=== PATIENT | female | born 1995 | race Caucasian/White ===

== ENCOUNTER 2021-02-15 05:25 | Inpatient (IN) | payer OTHER ==
[~2021-02-15] VITALS: Ht 167.6 cm; Wt 126.1 kg
[~2021-02-15 05:25] MED LIST: COLACE 100MG C100 MG PO; IBUPROFEN600 MG PO; LORTAB 5-325 M1 EACH PO
[2021-02-15 06:09] LABS: HEMOGLOBIN 11.4 gm/dl (12.3-15.3); RED BLOOD COUNT 4.17 M/UL (4.00-5.10)
[2021-02-15] MEDS ORDERED: IBUPROFEN600 MG PO (14:47)
[2021-02-15] MEDS ORDERED: DOCUSATE SODIU250 MG PO (14:47)
[2021-02-16 06:21] LABS: HEMOGLOBIN 10.9 gm/dl (12.3-15.3)
== END 2021-02-16 14:14 | disposition home or self-care (01) | DRG 807 ==
LOC: OB 05:25
PROVIDERS: ADMIT Obstetrics & Gynecology
PROC: 10E0XZZ Delivery of Products of Conception, External Approach (ICD-10-PCS; principal; 2021-02-15)
PROC: 0KQM0ZZ Repair Perineum Muscle, Open Approach (ICD-10-PCS; 2021-02-15)
PROC: 10907ZC Drainage of Amniotic Fluid, Therapeutic from Products of Conception, Via Natural or Artificial Opening (ICD-10-PCS; 2021-02-15)
PROC: 3E033VJ Introduction of Other Hormone into Peripheral Vein, Percutaneous Approach (ICD-10-PCS; 2021-02-15)
DX: O99.214 Obesity complicating childbirth (principal); Z37.0 Single live birth; Z20.822 Contact with and (suspected) exposure to COVID-19; E66.9 Obesity, unspecified; Z3A.39 39 weeks gestation of pregnancy; O70.1 Second degree perineal laceration during delivery
CPT/HCPCS: 36415; 51702; 81001; 82800; 85014; 85018; 85025; 90715; J2590; J7120; U0002

== ENCOUNTER 2021-03-31 23:05 | Emergency (ER) | payer OTHER ==
[~2021-03-31 23:05] MED LIST changes: +DOCUSATE SODIU250 MG PO
[2021-04-01] MEDS ORDERED: ZOFRAN ODT 4 MG4 MG PO (03:31)
[2021-04-01] MEDS ORDERED: LODINE CAP 300300 MG PO (03:31)
[2021-04-01] MEDS ORDERED: HYDROCODON-ACE1 EAC4 PO (03:32)
== END 2021-04-01 05:20 | disposition home or self-care (01) ==
LOC: ER1 23:05
DX: S92.001A Unspecified fracture of right calcaneus, initial encounter for closed fracture (principal); W18.42XA Slipping, tripping and stumbling without falling due to stepping into hole or opening, initial encounter
CPT/HCPCS: 29515; 73610; 73630; 99283

== ENCOUNTER → 2021-04-21 | Outpatient (CLI) | payer OTHER ==
[~2021-04-21] MED LIST changes: +HYDROCODON-ACE1 EAC4 PO; +LODINE CAP 300300 MG PO; +ZOFRAN ODT 4 MG4 MG PO
== END ==
LOC: KOH-I 09:17
DX: M79.671 Pain in right foot (principal)
CPT/HCPCS: 73630